=== PATIENT | male | born 1950 | race Asian ===

== ENCOUNTER 2019-08-27 22:44 | Inpatient (IN) | payer OTHER ==
--- NOTE | 2019-08-27 23:35 | PDOC ---
History of Present Illness - General Chief Complaint: Weakness Stated Complaint: FALL Time Seen by Provider: 08/27/19 23:11 - History of Present Illness Initial Comments: Mr. Hamilton is a 68 y/o male with PMH significant for DM, hypothyroidism, subtotal cholectomy with Billroth II anastomosis (2013) presenting today s /p fall tonight, nausea and vomiting x1 day yesterday, and decreased appetite and weakness for the past 2 weeks. Reports that he fell tonight while leaving the [employer]. He was helped up by bystanders. Unknown if he hit his head. Likely LOC. Family reports some shaking while he is on the floor, but unable to provide more detail if this was seizure like activity. Patient is alert and oriented. Denies headache or neck pain. Denies chest pain or shortness of breath. Denies heart palpitations prior to fall. Denies abdominal pain. Denies diarrhea. Denies dysuria/hematuria. Denies leg swelling. Past History - Past Medical History Allergies/Adverse Reactions: Allergies Allergy/AdvReac Type Severity Reaction Status Date / Time No Known Allergies Allergy Verified 08/27/19 22:53 Home Medications: Ambulatory Orders Levothyroxine [Synthroid -] 75 mcg PO DAILY 07/12/15 Tamsulosin HCl [Flomax -] 0.4 mg PO DAILY #0 capsule 07/12/15 Albuterol Sulfate Inhaler - [Ventolin HFA Inhaler -] 2 inh PO Q4H PRN #1 inh 01/05 Famotidine [Pepcid -] 20 mg PO BID #14 tablet 02/02/16 Ferrous Sulfate [Feosol] 325 mg PO DAILY 30 Days #30 tablet 08/28/19 Metformin HCl [Glucophage] 500 mg PO BID 08/28/19 Pantoprazole Sodium 40 mg PO DAILY 08/28/19 COPD: No Diabetes: Yes GI Disorders: Yes (GASTRITIS) Disorders: Yes (BPH) Liver Disease: Yes (HBV) Thyroid Disease: Yes (HYPO) - Surgical History Abdominal Surgery: Yes (05/2014 at [facility]) - Psycho Social/Smoking Cessation Hx Smoking History: Never smoked Have you smoked in the past 12 months: No Hx Alcohol Use: No Drug/Substance Use Hx: No Substance Use Type: None Hx Substance Use Treatment: No Review of Systems - Review of Systems Comments:: GENERAL/CONSTITUTIONAL: No fever or chills. Reports generalized weakness. HEAD, EYES, EARS, NOSE AND THROAT: No change in vision. No change in hearing. No sore throat._ CARDIOVASCULAR: No chest pain or shortness of breath_ RESPIRATORY: Denies cough, hemoptysis_ GASTROINTESTINAL: No nausea, vomiting, diarrhea or constipation._ GENITOURINARY: No dysuria, frequency, or change in urination._ MUSCULOSKELETAL: No joint or muscle swelling or pain. No neck or back pain._ SKIN: No rash_ NEUROLOGIC: Reprots dizziness. Reports loss of consciousness. No headache, or change in strength/sensation._ ENDOCRINE: No increased thirst. No abnormal weight change_ HEMATOLOGIC/LYMPHATIC: No anemia, easy bleeding, or history of blood clots._ ALLERGIC/IMMUNOLOGIC: No hives or skin allergy._ *Physical Exam - Vital Signs Last Vital Signs Temp Pulse Resp BP Pulse Ox 98.2 F 95 H 18 72/41 L 97 08/27/19 22:50 08/27/19 22:50 08/27/19 22:50 08/27/19 22:50 08/27/19 22:50 - Physical Exam GENERAL: Awake, alert, and oriented to person/place/time, in no acute distress_ HEAD: No signs of trauma, normocephalic, atraumatic _ EYES: PERRLA, EOMI, sclera anicteric, conjunctiva clear_ ENT: Hearing grossly normal, nares patent, oropharynx clear without exudates. No uvular deviation. Moist mucosa_ NECK: Normal ROM, supple, no lymphadenopathy, JVD, or masses. No c-spine TTP. LUNGS: No distress, speaks in full sentences, clear to auscultation bilaterally _ HEART: Regular rate and rhythm, normal S1 and S2, no murmurs appreciated, peripheral pulses normal and equal bilaterally._ ABDOMEN: Soft, mild diffuse TTP, normoactive bowel sounds. No guarding, no rebound. No masses_ EXTREMITIES: Normal inspection, Normal range of motion, no edema. No clubbing or cyanosis_ NEUROLOGICAL: CN II-XII tested and intact. Sensation intact to sharp/dull differentiation in all extremities. Motor: Normal tone and bulk. No abnormal movements appreciated. No pronator drift. Strength tested and 5/5 in bilateral wrist flexion/extension, elbow flexion/extension, shoulder abduction, straight leg raise, knee flexion/ extension, ankle dorsiflexion/plantarflexion. Patient ambulates with a steady gait. Coordination: Finger to nose and heel to gifford testing intact bilaterally. SKIN: Warm, Dry, normal turgor, no rashes or lesions noted_ RECTAL: Normal external inspection. No hemorrhoids visualized. Rectal vault empty. No obvious bleeding appreciated. No palpable masses. ED Treatment Course - LABORATORY CBC & Chemistry Diagram: 08/29/19 06:10 08/29/19 06:10 Medical Decision Making - Medical Decision Making 68M hx of DM hypothyroidism presenting today s/p likely syncope and fall. -cbc, cmp, lipase, coags -CT head, CT neck -ekg, trop, cxr -ua, ucx 08/28/19 01:00 Labs reviewed. Laboratory Tests 08/28/19 08/28/19 08/28/19 00:20 00:20 00:20 WBC 12.5 H RBC 4.70 Hgb 8.7 L Hct 29.1 L MCV 62.0 L MCH 18.4 L D MCHC 29.7 L RDW 21.7 H Plt Count 364 D MPV 9.1 D Absolute Neuts (auto) 7.2 Neutrophils % 57.5 Lymphocytes % 33.6 D Monocytes % 6.7 Eosinophils % 1.6 Basophils % 0.6 Nucleated RBC % 0 Hypochromia 2+ Platelet Estimate Normal Polychromasia 0 Poikilocytosis 2+ Anisocytosis 2+ Microcytosis 2+ Macrocytosis 0 PT with INR INR PTT (Actin FS) Sodium 139 Potassium 4.8 Chloride 110 H Carbon Dioxide 20 L Anion Gap 9 BUN 24.8 H Creatinine 2.2 H Est GFR (CKD-EPI)AfAm 33.92 Est GFR (CKD-EPI)NonAf 29.27 Random Glucose 95 Calcium 8.8 Total Bilirubin 0.2 AST 20 ALT 22 Alkaline Phosphatase 80 Creatine Kinase 106 Troponin I < 0.02 Total Protein 7.6 Albumin 3.5 Lipase 169 Urine Color Urine Appearance Urine pH Ur Specific [place] Urine Protein Urine Glucose (UA) Urine Ketones Urine Blood Urine Nitrite Urine Bilirubin Urine Urobilinogen Ur Leukocyte Esterase Urine WBC (Auto) Urine RBC (Auto) Urine Casts (Auto) U Pathogenic Cast Auto U Epithel Cells (Auto) Urine Bacteria (Auto) Stool Occult Blood 08/28/19 08/28/19 08/28/19 00:20 01:10 01:10 WBC RBC Hgb Hct MCV MCH MCHC RDW Plt Count MPV Absolute Neuts (auto) Neutrophils % Lymphocytes % Monocytes % Eosinophils % Basophils % Nucleated RBC % Hypochromia Platelet Estimate Polychromasia Poikilocytosis Anisocytosis Microcytosis Macrocytosis PT with INR 11.60 INR 0.98 PTT (Actin FS) 38.3 H Sodium Potassium Chloride Carbon Dioxide Anion Gap BUN Creatinine Est GFR (CKD-EPI)AfAm Est GFR (CKD-EPI)NonAf Random Glucose Calcium Total Bilirubin AST ALT Alkaline Phosphatase Creatine Kinase Troponin I Total Protein Albumin Lipase Urine Color Yellow Urine Appearance Clear Urine pH 5.0 Ur Specific [place] 1.030 Urine Protein 1+ H Urine Glucose (UA) Negative Urine Ketones Trace H Urine Blood Negative Urine Nitrite Negative Urine Bilirubin Negative Urine Urobilinogen 1.0 Ur Leukocyte Esterase Negative Urine WBC (Auto) 2 Urine RBC (Auto) 2 Urine Casts (Auto) 47 U Pathogenic Cast Auto None U Epithel Cells (Auto) 2.0 Urine Bacteria (Auto) 1.5 Stool Occult Blood Negative 08/28/19 01:40 EKG shows NSR, no axis deviation, no ST elevation/depression, no QTc prolongation. 08/28/19 02:28 CT head shows No acute intracranial hemorrhage mass effect or midline shift. Mild nonspecific periventricular predominant low density throughout the deep white matter is most likely due to mild small vessel ischemic white matter disease. Calcified arteriosclerosis of the cavernous carotids noted. CT c-spine shows No evidence of acute fracture or subluxation. Moderate degenerative disc disease and moderate degenerative joint disease of the uncovertebral joints and facets throughout the cervical spine. Moderate multilevel spinal canal narrowing in the middle and lower cervical levels. Severe multilevel neural foraminal narrowing in the middle and lower cervical levels. If clinically indicated follow-up outpatient MRI cervical spine may be needed. 08/28/19 02:48 Pt signed out to Dr. Cervantes. Discharge - Discharge Information Problems reviewed: Yes Clinical Impression/Diagnosis: Weakness, Dizziness, Anemia, Syncope and collapse Condition: Guarded - Admission Yes - Follow up/Referral - Patient Discharge Instructions - Post Discharge Activity
[2019-08-28 00:35] LABS: HEMOGLOBIN 8.7 GM/dL (11.7-16.9); MEAN PLT VOLUME 9.1 fl (7.5-11.1)
[2019-08-28 00:43] LABS: BASO % 0.6 % (0-2.0); EOS % 1.6 % (0-4.5); HEMATOCRIT 29.1 % (35.4-49); LYMPH % 33.6 % (8-40); MCHC 29.7 g/dl (32.0-35.9); MONO % 6.7 % (3.8-10.2); NEUT % 57.5 % (42.8-82.8); PLATELET COUNT 364 K/MM3 (134-434); RDW 21.7 % (11.9-15.9); WHITE BLOOD COUNT 12.5 K/mm3 (4.0-10.0)
[2019-08-28 00:46] LABS: MCH 18.4 pg (25.7-33.7)
[2019-08-28 00:47] LABS: INR 0.98 (0.83-1.09); PROTHROMBIN TIME (PATIENT) 11.6 SEC (9.7-13.0)
[2019-08-28 00:49] LABS: ACTIVATED PTT 38.3 SECONDS (25.2-36.5)
--- NOTE | 2019-08-28 01:18 | PDOC ---
Attending Attestation - Resident Resident Name: Adam Wills - ED Attending Attestation I have performed the following: I have examined & evaluated the patient, The case was reviewed & discussed with the resident, I agree w/resident's findings & plan - HPI HPI: 08/28/19 04:34 Pt got dizzy at the [employer] today and passed out. Unclear how long the LOC was; bystanders glrabbed him and stood him up. According to his soninlaw and daughter, pt has not been eating well and has decreased appetite. No chest pain and no dysuria, no fevers and no ill contacts. No recent travel and no PMHx of significance. - Physicial Exam PE: 08/28/19 04:35 Normal neuro exam. No pitting edema of legs Normal heart and lungs Normal HEENT No rashes and no fever Pt is following commands and naswering questions as normal Pt has no complaints. Just weakness - Medical Decision Making 08/28/19 02:30 Patient Name: SUKUMAR URIARTE THIS IS A PRELIMINARY REPORT FROM [facility] DATE OF SERVICE: 2019-08-28 01:23:30 IMAGES: [id number] EXAM: CERVICAL SPINE CT W/O CONTR HISTORY: 68-year-old male status post fall COMPARISON: May 29, 2019 FINDINGS: There is no prevertebral soft tissue swelling. There is no evidence of acute fracture or subluxation. There are no destructive lesions. Moderate degenerative disc disease and moderate degenerative joint disease of the uncovertebral joints and facets throughout the cervical spine. Moderate multilevel spinal canal narrowing in the middle and lower cervical levels. Severe multilevel neural foraminal narrowing in the middle and lower cervical levels. IMPRESSION: No evidence of acute fracture or subluxation. Moderate degenerative disc disease and moderate degenerative joint disease of the uncovertebral joints and facets throughout the cervical spine. Moderate multilevel spinal canal narrowing in the middle and lower cervical levels. Severe multilevel neural foraminal narrowing in the middle and lower cervical levels. If clinically indicated follow-up outpatient MRI cervical spine may be needed. Patient Name: SUKUMAR URIARTE THIS IS A PRELIMINARY REPORT FROM [facility] DATE OF SERVICE: 2019-08-28 01:26:59 IMAGES: [id number] EXAM: HEAD CT WITHOUT CONTRAST HISTORY: 68-year-old male status post fall COMPARISON: May 29, 2019 FINDINGS: No acute intracranial hemorrhage mass effect or midline shift. The ventricles sulci and basilar cisterns have a normal size and contour. Mild nonspecific periventricular predominant low density throughout the deep white matter is most likely due to mild small vessel ischemic white matter disease. Calcified arteriosclerosis of the cavernous carotids noted. The sinuses and mastoid air cells are clear within the [id number]. The calvarium is intact. IMPRESSION No acute intracranial hemorrhage mass effect or midline shift. Mild nonspecific periventricular predominant low density throughout the deep white matter is most likely due to mild small vessel ischemic white matter disease. Calcified arteriosclerosis of the cavernous carotids noted 08/28/19 03:53 08/28/19 04:36 Pt will be admitted for Dizziness and weakness and syncope and anemia Heart Score/ECG Review - ECG Intrepretation Rhythm: Regular Rhythm - [place]: Normal - P and KS Delta Wave(s) Present: No WPW: No - QRS Poor R Wave Progression: No Q Wave Present: No - ST and T Early Repolarization: No Non Specific ST-T Wave changes: No Flattened T Waves: No Prolonged Q-T Interval: No - ECG Impressions Normal ECG: Yes Non-specific ST Elevation: No Ischemic Changes: No Bradycardia: No Torsades chacorta Pointes: No WPW: No
[2019-08-28 01:32] LABS: ALBUMIN 3.5 g/dl (3.4-5.0); ALK PHOS 80 U/L (45-117); ANION GAP 9 MMOL/L (8-16); BILIRUBIN,TOTAL 0.2 mg/dL (0.2-1); BLOOD UREA NITROGEN 24.8 mg/dL (7-18); CALCIUM 8.8 mg/dL (8.5-10.1); CHLORIDE 110 mmol/L (98-107); CO2 20 mmol/L (21-32); CREATININE 2.2 mg/dL (0.55-1.3); GLUCOSE,RANDOM 95 mg/dL (74-106); POTASSIUM 4.8 mmol/L (3.5-5.1); SGOT/AST 20 U/L (15-37); SGPT/ALT 22 U/L (13-61); SODIUM 139 mmol/L (136-145); TOT PROT 7.6 g/dl (6.4-8.2)
[2019-08-28 01:50] LABS: HYALINE CASTS 47 /lpf (0-8); URINE APPEARANCE CLEAR; URINE BACTERIA 1.5 /hpf (NEGATIVE); URINE BILIRUBIN NEGATIVE (NEGATIVE); URINE COLOR YELLOW; URINE GLUCOSE (UA) NEGATIVE (NEGATIVE); URINE KETONE TRACE (NEGATIVE); URINE LEUK ESTERASE NEGATIVE (NEGATIVE); URINE NITRITE NEGATIVE (NEGATIVE); URINE PROTEIN 1+ (NEGATIVE); URINE RBC 2 /hpf (0-4); URINE WBC 2 /hpf (0-5)
--- NOTE | 2019-08-28 02:47 | PDOC ---
*Physical Exam - Vital Signs Last Vital Signs Temp Pulse Resp BP Pulse Ox 98.2 F 95 H 18 110/74 97 08/27/19 22:50 08/27/19 22:50 08/27/19 22:50 08/28/19 01:12 08/27/19 22:50 <LizrickeyCurtmomoJesse - Last Filed: 08/28/19 04:11> - Vital Signs Last Vital Signs Temp Pulse Resp BP Pulse Ox 98.2 F 95 H 18 110/74 97 08/27/19 22:50 08/27/19 22:50 08/27/19 22:50 08/28/19 01:12 08/27/19 22:50 <Mckenna Day - Last Filed: 08/28/19 04:38> ED Treatment Course - LABORATORY CBC & Chemistry Diagram: 08/28/19 00:20 08/28/19 00:20 - ADDITIONAL ORDERS Additional order review: Laboratory Results 08/28/19 08/28/19 08/28/19 01:10 01:10 00:20 PT with INR 11.60 INR 0.98 PTT (Actin FS) 38.3 H Sodium Potassium Chloride Carbon Dioxide Anion Gap BUN Creatinine Est GFR (CKD-EPI)AfAm Est GFR (CKD-EPI)NonAf Random Glucose Calcium Total Bilirubin AST ALT Alkaline Phosphatase Creatine Kinase Troponin I Total Protein Albumin Lipase Urine Color Yellow Urine Appearance Clear Urine pH 5.0 Ur Specific [place] 1.030 Urine Protein 1+ H Urine Glucose (UA) Negative Urine Ketones Trace H Urine Blood Negative Urine Nitrite Negative Urine Bilirubin Negative Urine Urobilinogen 1.0 Ur Leukocyte Esterase Negative Urine WBC (Auto) 2 Urine RBC (Auto) 2 Urine Casts (Auto) 47 U Pathogenic Cast Auto None U Epithel Cells (Auto) 2.0 Urine Bacteria (Auto) 1.5 Stool Occult Blood Negative 08/28/19 08/28/19 00:20 00:20 PT with INR INR PTT (Actin FS) Sodium 139 Potassium 4.8 Chloride 110 H Carbon Dioxide 20 L Anion Gap 9 BUN 24.8 H Creatinine 2.2 H Est GFR (CKD-EPI)AfAm 33.92 Est GFR (CKD-EPI)NonAf 29.27 Random Glucose 95 Calcium 8.8 Total Bilirubin 0.2 AST 20 ALT 22 Alkaline Phosphatase 80 Creatine Kinase 106 Troponin I < 0.02 Total Protein 7.6 Albumin 3.5 Lipase 169 Urine Color Urine Appearance Urine pH Ur Specific [place] Urine Protein Urine Glucose (UA) Urine Ketones Urine Blood Urine Nitrite Urine Bilirubin Urine Urobilinogen Ur Leukocyte Esterase Urine WBC (Auto) Urine RBC (Auto) Urine Casts (Auto) U Pathogenic Cast Auto U Epithel Cells (Auto) Urine Bacteria (Auto) Stool Occult Blood 08/28/19 00:20 RBC 4.70 MCV 62.0 L MCHC 29.7 L RDW 21.7 H MPV 9.1 D Neutrophils % 57.5 Lymphocytes % 33.6 D Monocytes % 6.7 Eosinophils % 1.6 Basophils % 0.6 <Jesse Cervantes - Last Filed: 08/28/19 04:11> - LABORATORY CBC & Chemistry Diagram: 08/28/19 00:20 08/28/19 00:20 - ADDITIONAL ORDERS Additional order review: Laboratory Results 08/28/19 08/28/19 08/28/19 01:10 01:10 00:20 PT with INR 11.60 INR 0.98 PTT (Actin FS) 38.3 H Sodium Potassium Chloride Carbon Dioxide Anion Gap BUN Creatinine Est GFR (CKD-EPI)AfAm Est GFR (CKD-EPI)NonAf Random Glucose Calcium Total Bilirubin AST ALT Alkaline Phosphatase Creatine Kinase Troponin I Total Protein Albumin Lipase Urine Color Yellow Urine Appearance Clear Urine pH 5.0 Ur Specific [place] 1.030 Urine Protein 1+ H Urine Glucose (UA) Negative Urine Ketones Trace H Urine Blood Negative Urine Nitrite Negative Urine Bilirubin Negative Urine Urobilinogen 1.0 Ur Leukocyte Esterase Negative Urine WBC (Auto) 2 Urine RBC (Auto) 2 Urine Casts (Auto) 47 U Pathogenic Cast Auto None U Epithel Cells (Auto) 2.0 Urine Bacteria (Auto) 1.5 Stool Occult Blood Negative 08/28/19 08/28/19 00:20 00:20 PT with INR INR PTT (Actin FS) Sodium 139 Potassium 4.8 Chloride 110 H Carbon Dioxide 20 L Anion Gap 9 BUN 24.8 H Creatinine 2.2 H Est GFR (CKD-EPI)AfAm 33.92 Est GFR (CKD-EPI)NonAf 29.27 Random Glucose 95 Calcium 8.8 Total Bilirubin 0.2 AST 20 ALT 22 Alkaline Phosphatase 80 Creatine Kinase 106 Troponin I < 0.02 Total Protein 7.6 Albumin 3.5 Lipase 169 Urine Color Urine Appearance Urine pH Ur Specific [place] Urine Protein Urine Glucose (UA) Urine Ketones Urine Blood Urine Nitrite Urine Bilirubin Urine Urobilinogen Ur Leukocyte Esterase Urine WBC (Auto) Urine RBC (Auto) Urine Casts (Auto) U Pathogenic Cast Auto U Epithel Cells (Auto) Urine Bacteria (Auto) Stool Occult Blood 08/28/19 00:20 RBC 4.70 MCV 62.0 L MCHC 29.7 L RDW 21.7 H MPV 9.1 D Neutrophils % 57.5 Lymphocytes % 33.6 D Monocytes % 6.7 Eosinophils % 1.6 Basophils % 0.6 <Mckenna Day - Last Filed: 08/28/19 04:38> Medical Decision Making - Medical Decision Making 08/28/19 02:45 hs diabetes, hypothyroidsim 3wks weakness and decreased appetite, fell today possible LOC and unknown head trauma head CT C-spine are negative CXR pending EKG is normal admit for syncope Admit to hospitalist. 08/28/19 04:11 Pt. microblogged for admission. <Jesse Cervantes - Last Filed: 08/28/19 04:11> Discharge <Jesse Cervantes - Last Filed: 08/28/19 04:11> - Discharge Information Problems reviewed: Yes - Admission Yes <Mckenna Day - Last Filed: 08/28/19 04:38> - Discharge Information Clinical Impression/Diagnosis: Weakness, Dizziness, Anemia, Syncope and collapse Condition: Guarded - Follow up/Referral Referrals: Damaris Corona MD [Primary Care Provider] - - Patient Discharge Instructions - Post Discharge Activity
[2019-08-28 03:12] LABS: ANISOCYTOSIS 2+; MACROCYTOSIS 0; PLATELET ESTIMATE NORMAL
[2019-08-28] MEDS ORDERED: FOLIC ACID INJECTION - 1 MG, THIAMINE HCL 100 MG, MULTIVIT INJECTION ADULT 10 ML in SOD... IVPB ONE (03:55)
--- NOTE | 2019-08-28 04:19 | PN ---
Teaching Attending Note Name of Resident: Giovanna Palacios ATTENDING PHYSICIAN STATEMENT I saw and evaluated the patient. I reviewed the resident's note and discussed the case with the resident. I agree with the resident's findings and plan as documented. SUBJECTIVE: Patient is a 68 year old man with a PMH of NIDDM, Hypothyroidism, Hepatitis B infection, Chronic gastritis, BPH and Subtotal colectomy with Billroth II anastomosis (2013) presenting today after a fall tonight, nausea and vomiting yesterday, and decreased appetite and weakness for the past 2 weeks. Reports that he fell tonight while leaving the [employer]. He was helped up by bystanders. Unknown if he hit his head. Likely LOC. Family reports some shaking while he is on the floor, but unable to provide more detail if this was seizure like activity. Had diarrhea in recent days as well as abdominal discomfort. Patient denies headache, neck pain, chest pain, shortness of breath, palpitations prior to fall, dysuria, hematuria or leg swelling. Retired and lives with family. No history of smoking, drinking or illicit drug use. No recent travel or sick contacts. OBJECTIVE: Alert Vital Signs Period Temp Pulse Resp BP Sys/Carroll Pulse Ox Last 24 Hr 98.2 F 95 18 72-110/41-74 97 HEENT: No Jaundice, eye redness or discharge, PERRLA, EOMI. Normocephalic, atraumatic. External ears are normal and hearing is grossly intact. No nasal discharge. Neck: Supple, nontender. No palpable adenopathy or thyromegaly. No JVD Chest: Good effort. Clear to auscultation and percussion. Heart: Regular. No S3, rub or murmur Abdomen: Not distended, soft, nontender and no HSM. No rebound or guarding. Normal bowel sounds. Ext: Peripheral pulses intact. No leg edema. Skin: Warm and dry. No petechiae, rash or ecchymosis. Neuro: Alert. Oriented x3. CN 2-12 grossly intact. Sensation grossly intact in all four extremities and DTR are symmetric. Psych: Appropriate mood and affect. Good insight. Current Medications Generic Name Dose Route Start Last Admin Trade Name Freq PRN Reason Stop Dose Admin Folic Acid 1 mg/ Thiamine HCl 1,000 mls @ 125 mls/hr 08/28/19 03:55 100 mg/ Multivitamins/Minerals IVPB 08/28/19 11:54 10 ml/ Sodium Chloride ONCE ONE Home Medications Medication Instructions Recorded Levothyroxine [Synthroid -] 25 mcg PO DAILY 07/12/15 Tamsulosin HCl [Flomax -] 0.4 mg PO DAILY #0 capsule 07/12/15 Albuterol Sulfate Inhaler - 2 inh PO Q4H PRN #1 inh 10/26/15 [Ventolin HFA Inhaler -] Famotidine [Pepcid -] 20 mg PO BID #14 tablet 02/02/16 Abnormal Lab Results 08/28/19 08/28/19 08/28/19 00:20 00:20 00:20 WBC 12.5 H Hgb 8.7 L Hct 29.1 L MCV 62.0 L MCH 18.4 L D MCHC 29.7 L RDW 21.7 H PTT (Actin FS) 38.3 H Chloride 110 H Carbon Dioxide 20 L BUN 24.8 H Creatinine 2.2 H Urine Protein Urine Ketones 08/28/19 01:10 WBC Hgb Hct MCV MCH MCHC RDW PTT (Actin FS) Chloride Carbon Dioxide BUN Creatinine Urine Protein 1+ H Urine Ketones Trace H ASSESSMENT AND PLAN: 1. Syncope/Anemia - Etiology of syncope is unclear. Had a bot of hypotension in the ER. Dehydration due to recent diarrhea/gastrointestinal infection and anemia are likely contributing factors. Will send any stool samples for analysis , get CT abdomen/pelvis, CXR, Flu swab, hydrate with IV NS and treat empirically with Levofloxacin and Flagyl pending cultures. EKG shows NSR with nonspecific T wave changes. If this initial workup is negative, then will proceed with carotid doppler, ECHO and brain MRI. No acute intracranial pathology on head CT. CT of C-spine didnot show any fracture or subluxation but noted "Moderate degenerative disc disease and moderate degenerative joint disease of the uncovertebral joints and facets throughout the cervical spine. Moderate multilevel spinal canal narrowing in the middle and lower cervical levels. Severe multilevel neural foraminal narrowing in the middle and lower cervical levels." Will continue comprehensive care for all of patients comorbid conditions. 2. CKD - Has risk factors for CKD. Will get kidney sonogram, PTH, phosphate, hydrate gently and monitor urine output. Will consult nephrology and avoid nephrotoxic agents such as NSAIDS, aminoglycosides, contrast dyes and certain Alternative medicine products. 3. Microcytic Anemia - Likely partly due to CKD. Will do basic anemia work up including serial stool guaiacs, reticulocyte count and iron studies. Consult GI for colonoscopy. Would benefit from Procrit therapy once iron replete. 4. DVT prophylaxis - Heparin 5000u sq tid. 5. Advance directives - Full code
[2019-08-28] MEDS ORDERED: SODIUM CHLORIDE 1,000 ML IV STA (06:23)
--- NOTE | 2019-08-28 07:19 | HP ---
CHIEF COMPLAINT: syncope PCP: Damaris Corona HISTORY OF PRESENT ILLNESS: Mr. Hamilton is a 68y/o male with DM and hypothyroidism who presents following syncope. He reports he was at [employer] yesterday evening and fell to the ground. He lost consciousness but was unsure how long. He reports having appetite loss and weakness over the last 2 weeks. In the last 2 days he began having diarrhea and right side abdominal pain, no blood noted in stool. He also had 1 episode of nausea followed by vomiting yesterday. He denies any sick contacts or eating foods out of the ordinary. He denies fever, chills, headache, or dizziness. ER course was notable for: (1) CT head/c-spine- no acute process, no fx (2) WBC 12.5 (3) Cr 2.2 [place] [id number] [place]. Pt family was not at bedside during this interview. PAST MEDICAL HISTORY: HTN hypothyroidism b/l cataracts PAST SURGICAL HISTORY: subtotal colectomy with anastamosis 2013 left eye cataract repair Social History: Smoking: denies Alcohol: denies Drugs: denies Lives at home with his Allergies No Known Allergies Allergy (Verified 08/27/19 22:53) HOME MEDICATIONS: Home Medications Medication Instructions Recorded Levothyroxine [Synthroid -] 75 mcg PO DAILY 07/12/15 Tamsulosin HCl [Flomax -] 0.4 mg PO DAILY #0 capsule 07/12/15 Albuterol Sulfate Inhaler - 2 inh PO Q4H PRN #1 inh 10/26/15 [Ventolin HFA Inhaler -] Famotidine [Pepcid -] 20 mg PO BID #14 tablet 02/02/16 Metformin HCl [Glucophage] 500 mg PO BID 08/28/19 Pantoprazole Sodium 40 mg PO DAILY 08/28/19 REVIEW OF SYSTEMS see HPI PHYSICAL EXAMINATION Vital Signs - 24 hr 08/27/19 08/28/19 08/28/19 22:50 01:12 05:10 Temperature 98.2 F Pulse Rate 95 H Pulse Rate [ 64 Apical] Respiratory 18 18 Rate Blood Pressure 72/41 L Blood Pressure 110/74 130/74 [Left Arm] O2 Sat by Pulse 97 99 Oximetry (%) GENERAL: Awake, alert, and fully oriented, in no acute distress. HEAD: Normal with no signs of trauma. EYES: Pupils equal, round and reactive to light, b/l cataracts, extraocular movements intact, sclera anicteric, conjunctiva clear. EARS, NOSE, THROAT: Ears normal, nares patent, moist mucous membranes. NECK: Normal range of motion LUNGS: Clear to auscultation bilaterally. No wheezes HEART: Regular rate and rhythm, no murmur ABDOMEN: Soft, nontender, not distended, hyperactive bowel sounds, no guarding, no rebound MUSCULOSKELETAL: Normal range of motion at all joints. UPPER EXTREMITIES: Warm, well-perfused. No peripheral edema. LOWER EXTREMITIES: Warm, well-perfused. No peripheral edema. NEUROLOGICAL: Cranial nerves II-XII intact. Normal speech. PSYCHIATRIC: Cooperative. Good eye contact. Appropriate mood and affect. SKIN: Warm, dry, normal turgor, no rashes Laboratory Results - last 24 hr 08/28/19 08/28/19 08/28/19 00:20 00:20 00:20 WBC 12.5 H RBC 4.70 Hgb 8.7 L Hct 29.1 L MCV 62.0 L MCH 18.4 L D MCHC 29.7 L RDW 21.7 H Plt Count 364 D MPV 9.1 D Absolute Neuts (auto) 7.2 Neutrophils % 57.5 Lymphocytes % 33.6 D Monocytes % 6.7 Eosinophils % 1.6 Basophils % 0.6 Nucleated RBC % 0 Hypochromia 2+ Platelet Estimate Normal Polychromasia 0 Poikilocytosis 2+ Anisocytosis 2+ Microcytosis 2+ Macrocytosis 0 PT with INR INR PTT (Actin FS) Sodium 139 Potassium 4.8 Chloride 110 H Carbon Dioxide 20 L Anion Gap 9 BUN 24.8 H Creatinine 2.2 H Est GFR (CKD-EPI)AfAm 33.92 Est GFR (CKD-EPI)NonAf 29.27 Random Glucose 95 Calcium 8.8 Total Bilirubin 0.2 AST 20 ALT 22 Alkaline Phosphatase 80 Creatine Kinase 106 Troponin I < 0.02 Total Protein 7.6 Albumin 3.5 Lipase 169 Urine Color Urine Appearance Urine pH Ur Specific [place] Urine Protein Urine Glucose (UA) Urine Ketones Urine Blood Urine Nitrite Urine Bilirubin Urine Urobilinogen Ur Leukocyte Esterase Urine WBC (Auto) Urine RBC (Auto) Urine Casts (Auto) U Pathogenic Cast Auto U Epithel Cells (Auto) Urine Bacteria (Auto) Stool Occult Blood 08/28/19 08/28/1908/28/19 00:20 01:10 01:10 WBC RBC Hgb Hct MCV MCH MCHC RDW Plt Count MPV Absolute Neuts (auto) Neutrophils % Lymphocytes % Monocytes % Eosinophils % Basophils % Nucleated RBC % Hypochromia Platelet Estimate Polychromasia Poikilocytosis Anisocytosis Microcytosis Macrocytosis PT with INR 11.60 INR 0.98 PTT (Actin FS) 38.3 H Sodium Potassium Chloride Carbon Dioxide Anion Gap BUN Creatinine Est GFR (CKD-EPI)AfAm Est GFR (CKD-EPI)NonAf Random Glucose Calcium Total Bilirubin AST ALT Alkaline Phosphatase Creatine Kinase Troponin I Total Protein Albumin Lipase Urine Color Yellow Urine Appearance Clear Urine pH 5.0 Ur Specific [place] 1.030 Urine Protein 1+ H Urine Glucose (UA) Negative Urine Ketones Trace H Urine Blood Negative Urine Nitrite Negative Urine Bilirubin Negative Urine Urobilinogen 1.0 Ur Leukocyte Esterase Negative Urine WBC (Auto) 2 Urine RBC (Auto) 2 Urine Casts (Auto) 47 U Pathogenic Cast Auto None U Epithel Cells (Auto) 2.0 Urine Bacteria (Auto) 1.5 Stool Occult Blood Negative ASSESSMENT/PLAN: Mr. Hamilton is a 68y/o male with DM and hypothyroidism who presents after syncope. He reports weakness over the last 2 weeks and diarrhea which started 2 days ago. Pt had leukocytosis and hypotension at presentation. #syncope -CT head/neck negative for acute processes -fluids -if abd CT negative, consider cardiac/neuro causes #diarrhea, r/o sepsis -CT abdomen/pelvis -monitor CBC -1L NS bolus -continue IV fluids -Levaquin -Flagyl -stool cultures -blood cultures #anemia ~10 on previous admission, 8.4 at admission -repeat CBC #SAGAR Cr 2.2 -hydrate -monitor labs #DM -SSI -BGMs #hypothyroid -reconcile and restart home meds DVT Ppx SCDs, reassess with repeat CBC FEN bolus given monitor labs NPO pending CT results dispo tele Visit type - Emergency Visit Emergency Visit: Yes ED Registration Date: 08/28/19 Care time: The patient presented to the Emergency Department on the above date and was hospitalized for further evaluation of their emergent condition. - New Patient This patient is new to me today: Yes Date on this admission: 08/28/19 - Critical Care Critical Care patient: No ATTENDING PHYSICIAN STATEMENT I saw and evaluated the patient. I reviewed the resident's note and discussed the case with the resident. I agree with the resident's findings and plan as documented. SUBJECTIVE: OBJECTIVE: ASSESSMENT AND PLAN:
[2019-08-28] MEDS: INSULIN SLIDING SCALE (NOVOLOG) 1 VIAL SQ SCH ×4 (08:59→21:36)
[2019-08-28 09:28] LABS: BASO % 1.2 % (0-2.0); EOS % 1.3 % (0-4.5); HEMATOCRIT 29.4 % (35.4-49); HEMOGLOBIN 8.8 GM/dL (11.7-16.9); LYMPH % 34.9 % (8-40); MCHC 29.9 g/dl (32.0-35.9); MEAN CELL VOLUME 61.8 fl (80-96); MEAN PLT VOLUME 9.1 fl (7.5-11.1); MONO % 6.4 % (3.8-10.2); NEUT % 56.2 % (42.8-82.8); PLATELET COUNT 326 K/MM3 (134-434); RBC 4.76 M/mm3 (4.00-5.60); RDW 21.2 % (11.9-15.9)
[2019-08-28 09:31] LABS: MCH 18.5 pg (25.7-33.7)
[2019-08-28 10:12] LABS: ALBUMIN 3.3 g/dl (3.4-5.0); BILIRUBIN,TOTAL 0.5 mg/dL (0.2-1); BLOOD UREA NITROGEN 22.6 mg/dL (7-18); CALCIUM 8.4 mg/dL (8.5-10.1); CREATININE 1.6 mg/dL (0.55-1.3); MAGNESIUM 2.2 mg/dL (1.8-2.4); PHOSPHOROUS 3.3 mg/dL (2.5-4.9); POTASSIUM 4.5 mmol/L (3.5-5.1); TOT PROT 7.6 g/dl (6.4-8.2)
[2019-08-28] MEDS ORDERED: INSULIN SLIDING SCALE (NOVOLOG) 1 VIAL SQ SCH (11:00)
--- NOTE | 2019-08-28 17:11 | HOSP ---
Subjective - Review of Symptoms Events since last encounter: Patient seen and examined by bedside. Admitted by overnight team this AM for weakness and diarrhea. CT abdomen does not show any gross acute process. CT head negative c/w rest of current management Physical Examination Vital Signs: Vital Signs Temperature 98 F 08/28/19 16:39 Pulse Rate 79 08/28/19 16:39 Respiratory Rate 18 08/28/19 16:39 Blood Pressure 138/86 08/28/19 16:39 O2 Sat by Pulse Oximetry (%) 99 08/28/19 16:39 Labs: CBC, BMP 08/28/19 09:03 08/28/19 09:03
[2019-08-28] MEDS ORDERED: ONDANSETRON 4 MG TABLET PO PRN (17:18)
[2019-08-28] MEDS: SODIUM CHLORIDE 1,000 ML IV SCH (18:32)
[2019-08-28] MEDS ORDERED: FLU VACCINE QUAD 60 MCG/0.5 ML (MDV 19-20) IM ONE (20:40)
[2019-08-28] MEDS: HEPARIN NA (PORCINE) 5,000 UNITS/ML 1ML VIAL SQ SCH (21:36)
--- NOTE | 2019-08-28 23:13 | EKG ---
Test Reason : Blood Pressure : / mmHG Vent. Rate : 070 BPM Atrial Rate : 070 BPM P-R Int : 174 ms QRS Dur : 090 ms QT Int : 382 ms P-R-T Axes : 046 008 076 degrees QTc Int : 412 ms NORMAL SINUS RHYTHM NONSPECIFIC T WAVE ABNORMALITY ABNORMAL ECG WHEN COMPARED WITH ECG OF 04-AUG-2016 19:51, VENT. RATE HAS DECREASED BY 53 BPM Confirmed by JANETTE WONG MD ([id number]) on 08/28/2019 11:13:21 PM Referred By: Confirmed By:JANETTE WONG MD
[2019-08-29] MEDS: INSULIN SLIDING SCALE (NOVOLOG) 1 VIAL SQ SCH ×4 (06:05→21:03)
[2019-08-29 06:31] LABS: BASO % 1.1 % (0-2.0); EOS % 1.6 % (0-4.5); HEMOGLOBIN 8.5 GM/dL (11.7-16.9); MCHC 30.4 g/dl (32.0-35.9); MEAN CELL VOLUME 62.1 fl (80-96); MEAN PLT VOLUME 8.8 fl (7.5-11.1); MONO % 7.1 % (3.8-10.2); NEUT % 57.2 % (42.8-82.8); PLATELET COUNT 304 K/MM3 (134-434); RBC 4.51 M/mm3 (4.00-5.60); RDW 21.5 % (11.9-15.9); WHITE BLOOD COUNT 9.2 K/mm3 (4.0-10.0)
[2019-08-29 06:41] LABS: MCH 18.9 pg (25.7-33.7)
[2019-08-29 06:49] VITALS: BMI 36.3
[2019-08-29 06:54] LABS: BLOOD UREA NITROGEN 14.4 mg/dL (7-18); CREATININE 1.4 mg/dL (0.55-1.3); MAGNESIUM 2.1 mg/dL (1.8-2.4); POTASSIUM 4.3 mmol/L (3.5-5.1)
[2019-08-29] MEDS: SODIUM CHLORIDE 1,000 ML IV SCH (08:49)
[2019-08-29] MEDS: HEPARIN NA (PORCINE) 5,000 UNITS/ML 1ML VIAL SQ SCH ×2 (09:07→21:26)
--- NOTE | 2019-08-29 12:02 | PN ---
Physical Exam: SUBJECTIVE: Patient seen and examined. Still having diarrhea but no abdominal pain, fever, chills or n/v OBJECTIVE: Vital Signs Period Temp Pulse Resp BP Sys/Carroll Pulse Ox Last 24 Hr 97.9 F-98.7 F 65-82 18-18 116-146/74-88 97-99 GENERAL: The patient is awake, alert, and fully oriented, in no acute distress. NECK: supple. LUNGS: Breath sounds equal, clear to auscultation bilaterally, no wheezes, no crackles, no accessory muscle use. HEART: Regular rate and rhythm, S1, S2 without murmur, rub or gallop. ABDOMEN: Soft, nontender, nondistended, normoactive bowel sounds + surgical scar noted EXTREMITIES: 2+ pulses, warm, well-perfused, no edema. PSYCH: Normal mood, normal affect. SKIN: Warm, dry, normal turgor, no rashes or lesions noted Laboratory Results - last 24 hr 08/28/19 08/28/19 08/28/19 12:11 16:32 21:34 WBC RBC Hgb Hct MCV MCH MCHC RDW Plt Count MPV Absolute Neuts (auto) Neutrophils % Lymphocytes % Monocytes % Eosinophils % Basophils % Nucleated RBC % Sodium Potassium Chloride Carbon Dioxide Anion Gap BUN Creatinine Est GFR (CKD-EPI)AfAm Est GFR (CKD-EPI)NonAf POC Glucometer 102 96 125 Random Glucose Calcium Magnesium Iron TIBC Iron Saturation Unsaturated IBC Ferritin 08/29/19 08/29/19 08/29/19 05:49 06:10 06:10 WBC 9.2 RBC 4.51 Hgb 8.5 L Hct 28.0 L MCV 62.1 L MCH 18.9 L MCHC 30.4 L RDW 21.5 H Plt Count 304 MPV 8.8 Absolute Neuts (auto) 5.2 Neutrophils % 57.2 Lymphocytes % 33.0 Monocytes % 7.1 Eosinophils % 1.6 Basophils % 1.1 Nucleated RBC % 0 Sodium 140 Potassium 4.3 Chloride 111 H Carbon Dioxide 21 Anion Gap 9 BUN 14.4 Creatinine 1.4 H Est GFR (CKD-EPI)AfAm 58.58 Est GFR (CKD-EPI)NonAf 50.54 POC Glucometer 98 Random Glucose 96 Calcium 8.0 L Magnesium 2.1 Iron 28 L TIBC 411 Iron Saturation 6 L Unsaturated IBC 383 H Ferritin 3.0 L 08/29/19 11:11 WBC RBC Hgb Hct MCV MCH MCHC RDW Plt Count MPV Absolute Neuts (auto) Neutrophils % Lymphocytes % Monocytes % Eosinophils % Basophils % Nucleated RBC % Sodium Potassium Chloride Carbon Dioxide Anion Gap BUN Creatinine Est GFR (CKD-EPI)AfAm Est GFR (CKD-EPI)NonAf POC Glucometer 171 Random Glucose Calcium Magnesium Iron TIBC Iron Saturation Unsaturated IBC Ferritin Active Medications Generic Name Dose Route Start Last Admin Trade Name Frejohnny PRN Reason Stop Dose Admin Ferrous Sulfate 325 mg 08/29/19 12:00 Feosol - PO TIDCM TAMELA Heparin Sodium (Porcine) 5,000 unit 08/28/19 22:00 08/29/19 09:07 Heparin - SQ 5,000 unit BID TAMELA Administration Sodium Chloride 1,000 mls @ 83 mls/hr 08/28/19 17:15 08/29/19 08:49 Normal Saline - IV 83 mls/hr ASDIR TAMELA Administration Insulin Aspart 1 vial 08/28/19 07:30 08/29/19 11:12 Novolog Vial Sliding Scale - SQ 2 units ACHS TAMELA Administration Protocol Ondansetron HCl 4 mg 08/28/19 17:18 Zofran - PO Q6H PRN NAUSEA AND/OR VOMITING ASSESSMENT/PLAN: 5o yo M w/ PMH of NIDDM, Hypothyroidism, Hepatitis B infection, Chronic gastritis, BPH and Subtotal colectomy with Billroth II anastomosis (2013) admitted for sycope, , Anemia, abdominal pain and N/V # syncope - unclear eitiology. Symptoms now resolved. Differentials include vasovagal vs dehydration in setting of diarrhea vs anemia - CT head negative - f/u Echo and doppler - tele # Anemia - likely iron deficiency based on iron studies. stool guaiac negative - start ferrous sulfate - Colonoscopy outpatient #Abdominal pain - resolved possible related to gastritis. Still having diarrhea - Likely viral eitiology. Patient has a hx of extensive surgical procedures in the past Abdomen CT showing no acute intra abdominal process - f/u stool cultures and Cdiff - normal wbc count, no fever or chills - abx discontinued - IVFs # CKD at baseline - avoid nephrotoxic meds - nephrology f/u outpatient #DMII - ISS DVT prophylaxis - Heparin 5000u sq tid. Advance directives - Full code Problem List - Problems (1) Syncope Code(s): R55 - SYNCOPE AND COLLAPSE (2) CKD (chronic kidney disease) Code(s): N18.9 - CHRONIC KIDNEY DISEASE, UNSPECIFIED (3) Diabetes Code(s): E11.9 - TYPE 2 DIABETES MELLITUS WITHOUT COMPLICATIONS (4) Abdominal pain Code(s): R10.9 - UNSPECIFIED ABDOMINAL PAIN Qualifiers: Abdominal location: unspecified location Qualified Code(s): R10.9 - Unspecified abdominal pain (5) Microcytic anemia Code(s): D50.9 - IRON DEFICIENCY ANEMIA, UNSPECIFIED Visit type - Emergency Visit Emergency Visit: Yes ED Registration Date: 08/28/19 Care time: The patient presented to the Emergency Department on the above date and was hospitalized for further evaluation of their emergent condition. - New Patient This patient is new to me today: No - Critical Care Critical Care patient: No - Discharge Referral Referred to [facility] Med [facility] No
[2019-08-29] MEDS: FERROUS SO4 325 MG TABLET (FP) PO SCH ×2 (12:10→17:00)
[2019-08-30] MEDS: INSULIN SLIDING SCALE (NOVOLOG) 1 VIAL SQ SCH ×4 (06:17→21:36)
[2019-08-30 06:37] LABS: BASO % 0.8 % (0-2.0); EOS % 2.3 % (0-4.5); HEMATOCRIT 28.7 % (35.4-49); HEMOGLOBIN 8.6 GM/dL (11.7-16.9); LYMPH % 32.7 % (8-40); MCHC 30.1 g/dl (32.0-35.9); MEAN CELL VOLUME 61.4 fl (80-96); MONO % 7.9 % (3.8-10.2); NEUT % 56.3 % (42.8-82.8); PLATELET COUNT 282 K/MM3 (134-434); RBC 4.68 M/mm3 (4.00-5.60); RDW 21.7 % (11.9-15.9); WHITE BLOOD COUNT 9.1 K/mm3 (4.0-10.0)
[2019-08-30 06:44] LABS: MCH 18.5 pg (25.7-33.7)
[2019-08-30 07:11] LABS: BLOOD UREA NITROGEN 11.1 mg/dL (7-18); CALCIUM 8.5 mg/dL (8.5-10.1); CREATININE 1.2 mg/dL (0.55-1.3); POTASSIUM 4.1 mmol/L (3.5-5.1)
[2019-08-30] MEDS: FERROUS SO4 325 MG TABLET (FP) PO SCH ×3 (08:15→16:47)
[2019-08-30] MEDS: HEPARIN NA (PORCINE) 5,000 UNITS/ML 1ML VIAL SQ SCH ×2 (09:13→21:36)
--- NOTE | 2019-08-30 14:58 | PN ---
Physical Exam: SUBJECTIVE: Patient seen and examined No new complaints; doing well and tell me that he has no chest pain, SOB, or further syncope. Admission imaging and telemetry reviewed Discussed with resident but I will be doing note today 10 sys ROS done and negative aside from HPI OBJECTIVE: Vital Signs Period Temp Pulse Resp BP Sys/Carroll Pulse Ox Last 24 Hr 97.7 F-98.2 F 77-83 16-20 122-142/80-98 97-98 GENERAL: The patient is awake, alert, and fully oriented, in no acute distress. HEAD: Normal with no signs of trauma. EYES: PERRL, extraocular movements intact, sclera anicteric, conjunctiva clear. No ptosis. ENT: Ears normal, nares patent, oropharynx clear without exudates, moist mucous membranes. NECK: Trachea midline, full range of motion, supple. LUNGS: Breath sounds equal, clear to auscultation bilaterally, no wheezes, no crackles, no accessory muscle use. HEART: Regular rate and rhythm, S1, S2 without murmur, rub or gallop. ABDOMEN: Soft, nontender, nondistended, normoactive bowel sounds, no guarding, no rebound, no hepatosplenomegaly, no masses. EXTREMITIES: 2+ pulses, warm, well-perfused, no edema. NEUROLOGICAL: Cranial nerves II through XII grossly intact. Normal speech, gait not observed. PSYCH: Normal mood, normal affect. SKIN: Warm, dry, normal turgor, no rashes or lesions noted Laboratory Results - last 24 hr 08/29/19 08/29/19 08/29/19 16:32 20:37 23:47 WBC RBC Hgb Hct MCV MCH MCHC RDW Plt Count MPV Absolute Neuts (auto) Neutrophils % Lymphocytes % Monocytes % Eosinophils % Basophils % Nucleated RBC % Sodium Potassium Chloride Carbon Dioxide Anion Gap BUN Creatinine Est GFR (CKD-EPI)AfAm Est GFR (CKD-EPI)NonAf POC Glucometer 148 76 151 Random Glucose Calcium 08/30/19 08/30/19 08/30/19 05:46 06:15 06:15 WBC 9.1 RBC 4.68 Hgb 8.6 L Hct 28.7 L MCV 61.4 L MCH 18.5 L MCHC 30.1 L RDW 21.7 H Plt Count 282 MPV 9.0 Absolute Neuts (auto) 5.1 Neutrophils % 56.3 Lymphocytes % 32.7 Monocytes % 7.9 Eosinophils % 2.3 Basophils % 0.8 Nucleated RBC % 0 Sodium 140 Potassium 4.1 Chloride 111 H Carbon Dioxide 21 Anion Gap 8 BUN 11.1 Creatinine 1.2 Est GFR (CKD-EPI)AfAm 70.58 Est GFR (CKD-EPI)NonAf 60.90 POC Glucometer 94 Random Glucose 91 Calcium 8.5 08/30/19 11:49 WBC RBC Hgb Hct MCV MCH MCHC RDW Plt Count MPV Absolute Neuts (auto) Neutrophils % Lymphocytes % Monocytes % Eosinophils % Basophils % Nucleated RBC % Sodium Potassium Chloride Carbon Dioxide Anion Gap BUN Creatinine Est GFR (CKD-EPI)AfAm Est GFR (CKD-EPI)NonAf POC Glucometer 185 Random Glucose Calcium Active Medications Generic Name Dose Route Start Last Admin Trade Name Freq PRN Reason Stop Dose Admin Ferrous Sulfate 325 mg 08/29/19 12:00 08/30/19 11:47 Feosol - PO 325 mg TIDCM TAMELA Administration Heparin Sodium (Porcine) 5,000 unit 08/28/19 22:00 08/30/19 09:13 Heparin - SQ 5,000 unit BID TAMELA Administration Sodium Chloride 1,000 mls @ 83 mls/hr 08/28/19 17:15 08/29/19 08:49 Normal Saline - IV 83 mls/hr ASDIR TAMELA Administration Insulin Aspart 1 vial 08/28/19 07:30 08/30/19 11:50 Novolog Vial Sliding Scale - SQ 2 units ACHS TAMELA Administration Protocol Ondansetron HCl 4 mg 08/28/19 17:18 Zofran - PO Q6H PRN NAUSEA AND/OR VOMITING ASSESSMENT/PLAN: 5o yo M w/ PMH of NIDDM, Hypothyroidism, Hepatitis B infection, Chronic gastritis, BPH and Subtotal colectomy with Billroth II anastomosis (2013) admitted for sycope, , Anemia, abdominal pain and N/V # syncope - Resolved; FU OSVS in AM - CT head negative - f/u Echo and doppler - tele # Anemia -FO OP colonoscopy, on iron. #Abdominal pain - No further diarrhea, negative abdominal exam today. # CKD at baseline - avoid nephrotoxic meds - nephrology f/u outpatient #DMII - ISS Visit type - Emergency Visit Emergency Visit: Yes ED Registration Date: 08/28/19 Care time: The patient presented to the Emergency Department on the above date and was hospitalized for further evaluation of their emergent condition. - New Patient This patient is new to me today: No - Critical Care Critical Care patient: No
--- NOTE | 2019-08-30 16:56 | ECHO ---
Name: WALTER URIARTEHIR Exam:Adult Echocardiogram Study Date: 08/30/2019 09:13 AM Age: 68 yrs Height: 53 in Weight: 145 lb BSA: 1.5 m2 MMode/2D Measurements & Calculations IVSd: 1.0 cm Ao root diam: 2.8 cm LVIDd: 3.6 cm LA dimension: 3.2 cm LVIDs: 2.6 cm LVPWd: 1.5 cm LVPWs: 1.6 cm EDV(Teich): 55.0 ml ESV(Teich): 24.5 ml LVOT diam: 2.1 cm Doppler Measurements & Calculations MV E max dirk: 54.3 cm/sec Ao V2 max: 120.5 cm/sec MV A max dirk: 87.9 cm/sec Ao max P.8 mmHg MV E/A: 0.62 MV dec time: 0.15 sec LEON(V,D): 2.1 cm2 LV V1 max P.3 mmHg TR max dirk: 202.2 cm/sec LV V1 max: 76.5 cm/sec TR max P.4 mmHg PA V2 max: 169.0 cm/sec Med Peak E' Dirk: 4.8 cm/sec PA max P.5 mmHg Med E/e': 11.3 Lat Peak E' Dirk: 5.7 cm/sec Lat E/e': 9.5 Procedure A complete two-dimensional transthoracic echocardiogram was performed (2D, M-mode, Doppler and color flow Doppler). Left Ventricle The left ventricle is normal in size. Left ventricular systolic function is normal. Ejection Fraction = 55- 60%. Grade I diastolic dysfunction, (abnormal relaxation pattern). Ratio E/E'= 11. No regional wall m otion abnormalities noted. Right Ventricle The right ventricle is normal size. The right ventricular systolic function is normal. RV systolic TD I is 13 cm/s. Atria The left atrial size is normal. Right atrial size is normal. Mitral Valve There is mild mitral annular calcification. There is no mitral regurgitation noted. Tricuspid Valve The tricuspid valve is normal in structure and function. There is mild tricuspid regurgitation. Right ventricular systolic pressure is normal. Aortic Valve There is mild aortic sclerosis.;. No aortic regurgitation is present. Pulmonic Valve The pulmonic valve is not well visualized. Great Vessels The aortic root is normal size. Pericardium/Pleura There is no pericardial effusion. Interpretation Summary The left ventricle is normal in size. Left ventricular systolic function is normal. No regional wall motion abnormalities noted. Ejection Fraction = 55-60%. Grade I diastolic dysfunction, (abnormal relaxation pattern). Ratio E/E'= 11 The right ventricular systolic function is normal. The left atrial size is normal. Right atrial size is normal. There is mild mitral annular calcification. There is mild tricuspid regurgitation. Right ventricular systolic pressure is normal. There is mild aortic sclerosis.; There is no pericardial effusion. Joshua Bay MD 08/30/2019 04:55 PM
[2019-08-30] MEDS: SODIUM CHLORIDE 1,000 ML IV SCH (21:36)
[2019-08-31] MEDS: INSULIN SLIDING SCALE (NOVOLOG) 1 VIAL SQ SCH ×3 (06:26→16:52)
[2019-08-31] MEDS ORDERED: SODIUM CHLORIDE 250 ML IV STA (08:29)
[2019-08-31] MEDS: FERROUS SO4 325 MG TABLET (FP) PO SCH ×3 (08:55→17:42)
[2019-08-31 09:15] LABS: BASO % 0.9 % (0-2.0); EOS % 2.3 % (0-4.5); HEMATOCRIT 32.2 % (35.4-49); HEMOGLOBIN 9.5 GM/dL (11.7-16.9); LYMPH % 37.5 % (8-40); MCHC 29.5 g/dl (32.0-35.9); MEAN CELL VOLUME 61.6 fl (80-96); MONO % 5.9 % (3.8-10.2); NEUT % 53.4 % (42.8-82.8); PLATELET COUNT 368 K/MM3 (134-434); RBC 5.22 M/mm3 (4.00-5.60); RDW 21.9 % (11.9-15.9); WHITE BLOOD COUNT 13.7 K/mm3 (4.0-10.0)
[2019-08-31 09:21] LABS: MCH 18.2 pg (25.7-33.7)
[2019-08-31 09:41] LABS: BLOOD UREA NITROGEN 11.8 mg/dL (7-18); CALCIUM 8.9 mg/dL (8.5-10.1); CREATININE 1.4 mg/dL (0.55-1.3); POTASSIUM 4.4 mmol/L (3.5-5.1)
[2019-08-31 10:26] LABS: ANISOCYTOSIS 2+; MACROCYTOSIS 0; PLATELET ESTIMATE NORMAL; ROULEAU 2+; TARGET CELLS 2+; TEAR DROP CELLS 1+
[2019-08-31] MEDS: HEPARIN NA (PORCINE) 5,000 UNITS/ML 1ML VIAL SQ SCH (10:27)
[2019-08-31 12:29] VITALS: TEMP 98.4
--- NOTE | 2019-08-31 16:41 | DS ---
Physical Exam: SUBJECTIVE: Patient seen and examined at bedside. BP WNL, until son in law in room, causing HTN. Encouraged breathing exercises. At this time, pt endorses feeling safe at home. Per SW note: It Sales Representative attempted to call [facility]PS Isra camarillo ([phone]) but there was no answer. It Sales Representative called [facility] number ([phone]) and reported findings to helpline employee. She reported she will call Isra TEE herself to relay information and an APS worker will call keno writer/runner within the next 72 hours. Patient will discharge home at this time, keno writer/runner will continue to provide information to APS when they call back. Original Note: OBJECTIVE: Vital Signs Period Temp Pulse Resp BP Sys/Carroll Pulse Ox Last 24 Hr 97.9 F-98.5 F 71-94 18-20 132-177/86-104 97-97 PHYSICAL EXAM LABS Laboratory Results - last 24 hr 08/30/19 08/30/19 08/31/19 16:47 21:33 06:15 WBC RBC Hgb Hct MCV MCH MCHC RDW Plt Count MPV Absolute Neuts (auto) Neutrophils % Lymphocytes % Monocytes % Eosinophils % Basophils % Nucleated RBC % Hypochromia Platelet Estimate Polychromasia Poikilocytosis Anisocytosis Microcytosis Macrocytosis Target Cells Tear Drop Cells Acanthocytes (Spur) Rouleaux Schistocytes Sodium Potassium Chloride Carbon Dioxide Anion Gap BUN Creatinine Est GFR (CKD-EPI)AfAm Est GFR (CKD-EPI)NonAf POC Glucometer 90 148 90 Random Glucose Calcium 08/31/19 08/31/19 08/31/19 08:52 08:52 11:48 WBC 13.7 H RBC 5.22 Hgb 9.5 L Hct 32.2 L MCV 61.6 L MCH 18.2 L MCHC 29.5 L RDW 21.9 H Plt Count 368 D MPV 9.0 Absolute Neuts (auto) 7.3 Neutrophils % 53.4 Lymphocytes % 37.5 Monocytes % 5.9 Eosinophils % 2.3 Basophils % 0.9 Nucleated RBC % 0 Hypochromia 2+ Platelet Estimate Normal Polychromasia 1+ Poikilocytosis 2+ Anisocytosis 2+ Microcytosis 2+ Macrocytosis 0 Target Cells 2+ Tear Drop Cells 1+ Acanthocytes (Spur) 1+ Rouleaux 2+ Schistocytes 2+ Sodium 141 Potassium 4.4 Chloride 113 H Carbon Dioxide 19 L Anion Gap 9 BUN 11.8 Creatinine 1.4 H Est GFR (CKD-EPI)AfAm 58.58 Est GFR (CKD-EPI)NonAf 50.54 POC Glucometer 112 Random Glucose 99 Calcium 8.9 08/28/19 08/28/19 08/29/19 00:20 09:03 06:10 WBC 12.5 H 11.0 H 9.2 Hgb 8.7 L 8.8 L 8.5 L Hct 29.1 L 29.4 L 28.0 L Plt Count 364 D 326 304 08/30/19 08/31/19 06:15 08:52 WBC 9.1 13.7 H Hgb 8.6 L 9.5 L Hct 28.7 L 32.2 L Plt Count 282 368 D 08/28/19 00:20 PT with INR 11.60 INR 0.98 PTT (Actin FS) 38.3 H Microbiology 08/28/19 19:30 Stool Salmonella/Shigella Culture - Final 08/28/19 19:30 Stool Escherichia coli 0157 Culture - Final NO GROWTH OF SALMONELLA OR SHIGELLA SPECIES OBTAINED NO GROWTH OF CAMPYLOBACTER SPECIES OBTAINED NO GROWTH OF YERSINIA SPECIES OBTAINED NO GROWTH OF VIBRIO SPECIES OBTAINED NO GROWTH OF E COLI 0157 OBTAINED 08/28/19 19:30 Stool Clostridioides difficile Antigen - Final 08/28/19 19:30 Stool Clostridioides difficile Toxin Assay - Final 08/27/19 23:56 Urine - Urine Clean Catch Urine Culture - Final NO GROWTH OBTAINED 08/28/19 09:03 Blood - Peripheral Venous Blood Culture - Preliminary NO GROWTH OBTAINED AFTER 72 HOURS, INCUBATION TO CONTINUE FOR 2 DAYS. 08/28/19 08:56 Blood - Peripheral Venous Blood Culture - Preliminary NO GROWTH OBTAINED AFTER 72 HOURS, INCUBATION TO CONTINUE FOR 2 DAYS. Imaging 08/28/19: C spine CT: no fx identified. moderate to marked C6-C7 degenerative central canal stenosis. multilevel bilateral foraminal sternoses noted secondary to uncovertebral joint hypertrophy. no gross disc herniation is identified. perivertebral soft tissues demonstrate no obvious pathology. 08/28/19: Head CT : (-) 08/28/19 CXR: (-) for acute changes 08/28/19: CTAP: urinary bladder overdistension - physiologic vs. mild early retention, no obvious interval change in comparison to a prior CT exam of 10/14/18. s/p cholecystectomy. mild CBD dilation. post surgical gastric and perihepatic changes seen. 08/29/19: Carotid duplex (-) 08/30/19 ECHO: LVSF normal, EF 55-60%, grade I diastolic dysfnc, RVSF normal, mild TR, RVSP normal, no pericardial effusion HOSPITAL COURSE: Date of Admission:08/28/19 Date of Discharge: 08/31/19 68 yo M w/ PMH of NIDDM, Hypothyroidism, Hepatitis B infection, Chronic gastritis, BPH and Subtotal colectomy with Billroth II anastomosis (2013) admitted for syncope, Anemia, abdominal pain and N/V # syncope - unclear eitiology. Symptoms now resolved. Differentials include vasovagal vs dehydration in setting of diarrhea vs anemia - CT head negative - ECHO WNL, carotid duplex (-) - tele without acute events. d/c home with cardio f/u and holter # Anemia - likely iron deficiency based on iron studies. stool guaiac negative - started on ferrous sulfate . will take senna, colace if constipated - Colonoscopy recommented as outpatient d/t [id number] #Abdominal pain - resolved, no longer w abdominal pain - stool cx (-) - off abx, no fever # CKD at baseline - avoid nephrotoxic meds - nephrology f/u outpatient #DMII - ISS, BGM. cont home meds on d/c pt states he feels safe at home. SW actions listed above. Minutes to complete discharge: 45 <Savanna Wells - Last Filed: 08/31/19 17:30> Physical Exam: Seen and examined; I agree with thee above assessment and plan and DCS as documented. Discussed with resident and indicated subspecialists. Independently verified all chairez historical elements and PE features. All questions answered. No further subjective issues; patient has reached maximum benefit from hospital stay. VS labs imaging reviewed NAD, AAO HR wnl, +s1/2 NT ND +BS Neuro baseline with no new FNDs or speech changes Agree with DC plan as indicated including discussion of diet, activity, and followups. <Pablo Harris - Last Filed: 09/20/19 07:03> Discharge Summary Problems reviewed: Yes Reason For Visit: ANEMIA,SYNCOPE,WEAKNESS Current Active Problems CKD (chronic kidney disease) (Acute) Diabetes (Acute) Syncope (Acute) - Home Medications Comprehensive Discharge Medication List: Ambulatory Orders Levothyroxine [Synthroid -] 75 mcg PO DAILY 07/12/15 Tamsulosin HCl [Flomax -] 0.4 mg PO DAILY #0 capsule 07/12/15 Albuterol Sulfate Inhaler - [Ventolin HFA Inhaler -] 2 inh PO Q4H PRN #1 inh 01/05 Famotidine [Pepcid -] 20 mg PO BID #14 tablet 02/02/16 Ferrous Sulfate [Feosol] 325 mg PO DAILY 30 Days #30 tablet 08/28/19 Metformin HCl [Glucophage] 500 mg PO BID 08/28/19 Pantoprazole Sodium 40 mg PO DAILY 08/28/19 Docusate Sodium [Colace] 100 mg PO DAILY PRN #30 capsule 08/31/19 Sennosides [Senna] 8.6 mg PO DAILY PRN #30 tablet 08/31/19 <Savanna Wells - Last Filed: 08/31/19 17:30> - Home Medications Comprehensive Discharge Medication List: Ambulatory Orders Levothyroxine [Synthroid -] 75 mcg PO DAILY 07/12/15 Tamsulosin HCl [Flomax -] 0.4 mg PO DAILY #0 capsule 07/12/15 Albuterol Sulfate Inhaler - [Ventolin HFA Inhaler -] 2 inh PO Q4H PRN #1 inh 01/05 Famotidine [Pepcid -] 20 mg PO BID #14 tablet 02/02/16 Ferrous Sulfate [Feosol] 325 mg PO DAILY 30 Days #30 tablet 08/28/19 Metformin HCl [Glucophage] 500 mg PO BID 08/28/19 Pantoprazole Sodium 40 mg PO DAILY 08/28/19 Docusate Sodium [Colace] 100 mg PO DAILY PRN #30 capsule 08/31/19 Sennosides [Senna] 8.6 mg PO DAILY PRN #30 tablet 08/31/19 <Pablo Harris - Last Filed: 09/20/19 07:03> Condition: Improved - Instructions Diet, Activity, Other Instructions: You were in the hospital because you almost passed out. While you were here, you received IV fluids for hydration. You also had testing done: your carotid doppler (imaging of your neck vessels) was normal. You also had a CT scan of your head, and ECHO which were normal. You improved and are being discharged home. Medications 1. You are being started on iron, since yours was low. Please take Ferrous Sulfate 325mg daily. 2. If you become constipated from the iron, you may take senna and colace daily (as needed). These will be prescribed. 3. You may continue your other home medications Testing You will need to have a colonoscopy scheduled through your primary care doctor. This is important, since you were found to have iron deficiency. Your primary care doctor will refer you to a GI (gastrointestinal) doctor to do this. Follow up Please follow with the following doctors on your discharge: -Dr. Dereck Corona, your primary care doctor - in 3-5 days after your discharge -Dr. Talley, a emergency services dispatcher - this week. to undergo holter monitoring -Dr. Barcenas, a culinary arts instructor (kidney doctor)- 1 week, to follow. since you have chronic kidney disease. Referrals: Gildardo Talley MD [Staff Physician] - 1 Week Radha Barcenas MD [Staff Physician] - 1 Week Damaris Corona MD [Primary Care Provider] - 09/02/19 Disposition: HOME This patient is new to me today: No Emergency Visit: No Critical Care patient: No - Discharge Referral Referred to [facility] No <Saavnna Wells - Last Filed: 08/31/19 17:30> ATTENDING PHYSICIAN STATEMENT I saw and evaluated the patient. I reviewed the resident's note and discussed the case with the resident. I agree with the resident's findings and plan as documented. SUBJECTIVE: OBJECTIVE: ASSESSMENT AND PLAN: <Pablo Harris - Last Filed: 09/20/19 07:03>
[2019-08-31] MEDS ORDERED: LISINOPRIL 5 MG TABLET (FP) PO ONE (16:42)
[2019-08-31 18:55] VITALS: BP 162/98; PULSE 88
== END 2019-08-31 19:44 | disposition home or self-care (01) | DRG 312 ==
LOC: JER 22:44 → JERBED 08-28 04:39 → INTOOBSV 08-28 04:39 → OBSVTOIN 08-28 06:37 → J4S 08-28 18:13
PROVIDERS: ADMIT Internal Medicine; ATTEND Internal Medicine
DX: R55 Syncope and collapse (principal); N17.9 Acute kidney failure, unspecified; A09 Infectious gastroenteritis and colitis, unspecified; E03.9 Hypothyroidism, unspecified; E11.9 Type 2 diabetes mellitus without complications; N40.0 Benign prostatic hyperplasia without lower urinary tract symptoms; K29.70 Gastritis, unspecified, without bleeding; D50.9 Iron deficiency anemia, unspecified; N18.9 Chronic kidney disease, unspecified; E86.0 Dehydration
CPT/HCPCS: 36415; 70450-TC; 71045-TC-FY; 72125-TC; 74176-TC; 80048; 80053; 81003; 82272; 82550; 82728; 82962; 83540; 83550; 83690; 83735; 84100; 84484; 85025; 85610; 85730; 87040; 87045; 87046; 87086; 87324; 87449; 93005; 93010; 93306-TC; 93880-TC; 99285-25; G0008; G0378; J1644; J7030; Q2036

== ENCOUNTER 2024-06-15 19:03 | Emergency (ER) | payer OTHER ==
[2024-06-15 19:13] VITALS: BMI 26.6
[2024-06-15] MEDS ORDERED: ACETAMINOPHEN INJECTION 100 ML ONE (20:49)
[2024-06-15] MEDS ORDERED: FAMOTIDINE 20 MG/50 ML IVPB 20 MG/50 ML MG IVPB ONE (20:49)
[2024-06-15] MEDS: SODIUM CHLORIDE 0.9% 500 ML INFUS.BAG IV ONE (20:59)
[2024-06-15] MEDS: FAMOTIDINE 20 MG/50 ML IVPB 20 MG/50 ML MG IVPB ONE (20:59)
[2024-06-15] MEDS: ACETAMINOPHEN 1000 MG/100 ML BAG IVPB ONE (20:59)
[2024-06-15 21:06] LABS: BASO % 0.7 % (0-2.0); EOS % 3.3 % (0-4.5); HEMATOCRIT 35.7 % (35.4-49); HEMOGLOBIN 11.6 GM/dL (11.7-16.9); LYMPH % 22.4 % (8-40); MCH 26.6 pg (25.7-33.7); MCHC 32.6 g/dl (32.0-35.9); MEAN CELL VOLUME 81.6 fl (80-96); MEAN PLT VOLUME 8.6 fl (7.5-11.1); MONO % 9.4 % (3.8-10.2); NEUT % 64.2 % (42.8-82.8); PLATELET COUNT 253 10^3/uL (134-434); RBC 4.37 M/mm3 (4.00-5.60); RDW 15.7 % (11.9-15.9); WHITE BLOOD COUNT 8.6 K/mm3 (4.0-10.0)
[2024-06-15] MEDS ORDERED: BACITRACIN 0.9 GM PACKET ONE (21:08)
[2024-06-15 21:35] LABS: POTASSIUM 4.1 mmol/L (3.5-5.1)
[2024-06-15 21:39] LABS: BLOOD UREA NITROGEN 16.1 mg/dL (7-18)
[2024-06-15 21:41] LABS: CREATININE 1.5 mg/dL (0.55-1.3)
[2024-06-15 21:43] LABS: BILIRUBIN,TOTAL 0.5 mg/dL (0.2-1); TOT PROT 8.6 g/dl (6.4-8.2)
[2024-06-15 23:48] VITALS: BP 94/55; PULSE 90; RESP 20; TEMP 98.2
[2024-06-15] MEDS: LACTATED RINGERS SOLUTION 1000 ML INFUS.BAG IV ONE (23:48)
[2024-06-16 00:34] LABS: POTASSIUM 3.8 mmol/L (3.5-5.1)
[2024-06-16 00:36] LABS: ALBUMIN 2.6 g/dl (3.4-5.0); BLOOD UREA NITROGEN 15.8 mg/dL (7-18); CALCIUM 8.4 mg/dL (8.5-10.1)
[2024-06-16 00:40] LABS: CREATININE 1.3 mg/dL (0.55-1.3)
[2024-06-16 00:41] LABS: BILIRUBIN,TOTAL 0.4 mg/dL (0.2-1); TOT PROT 7.3 g/dl (6.4-8.2)
[2024-06-16 01:08] LABS: HIV INTERPRETATION NEGATIVE (NEGATIVE)
[2024-06-16 01:18] LABS: PH,URINE 6.5 (5.0-8.0); URINE APPEARANCE CLEAR; URINE BILIRUBIN NEGATIVE (NEGATIVE); URINE COLOR YELLOW; URINE GLUCOSE (UA) NEGATIVE (NEGATIVE); URINE KETONE NEGATIVE (NEGATIVE); URINE LEUK ESTERASE NEGATIVE (NEGATIVE); URINE NITRITE NEGATIVE (NEGATIVE); URINE PROTEIN NEGATIVE (NEGATIVE); URINE UROBILINOGEN 0.2 mg/dL (0.2-1.0)
== END 2024-06-16 01:32 | disposition home or self-care (01) ==
LOC: JER 19:03
PROC: 3E033GC Introduction of Other Therapeutic Substance into Peripheral Vein, Percutaneous Approach (ICD-10-PCS; principal; 2024-06-15)
PROC: 3E033NZ Introduction of Analgesics, Hypnotics, Sedatives into Peripheral Vein, Percutaneous Approach (ICD-10-PCS; 2024-06-15)
DX: J10.1 Influenza due to other identified influenza virus with other respiratory manifestations (principal); R05.9 Cough, unspecified; R09.81 Nasal congestion; R50.9 Fever, unspecified; R10.11 Right upper quadrant pain; M79.10 Myalgia, unspecified site; R11.2 Nausea with vomiting, unspecified; Z20.822 Contact with and (suspected) exposure to COVID-19
CPT/HCPCS: 0241U-QW; 36415; 71046-TC-FY; 74176-TC; 80053; 81003; 83605; 83690; 84484; 85025; 86803; 87086; 87389; 93005; 93010; 96365; 96375; 99285-25; J0131

== ENCOUNTER 2024-09-17 14:22 | Inpatient (IN) | payer OTHER ==
[2024-09-17] MEDS: ALBUTEROL SO4 2.5/IPRATROPIUM 0.5 INH SOL 3 ML VIAL.NEB. NEB SCH (16:10)
[2024-09-17] MEDS ORDERED: ACETAMINOPHEN INJECTION 100 ML ONE (16:13)
[2024-09-17] MEDS ORDERED: ALBUTEROL SO4 2.5/IPRATROPIUM 0.5 INH SOL 3 ML VIAL.NEB. NEB ONE ×3 (16:13→16:32)
[2024-09-17 16:17] LABS: BASO % 0.7 % (0-2.0); EOS % 1.9 % (0-4.5); HEMATOCRIT 35.7 % (35.4-49); HEMOGLOBIN 11.3 GM/dL (11.7-16.9); LYMPH % 16.8 % (8-40); MCHC 31.6 g/dl (32.0-35.9); MEAN PLT VOLUME 8.4 fl (7.5-11.1); MONO % 7.6 % (3.8-10.2); PLATELET COUNT 339 10^3/uL (134-434); RBC 4.52 M/mm3 (4.00-5.60); RDW 16.7 % (11.9-15.9); WHITE BLOOD COUNT 15.1 K/mm3 (4.0-10.0)
[2024-09-17] MEDS: ACETAMINOPHEN 1000 MG/100 ML BAG IVPB ONE (16:21)
[2024-09-17 16:28] LABS: INR 1.07 (0.83-1.09); PROTHROMBIN TIME (PATIENT) 12.1 SEC (9.7-13.0)
[2024-09-17 16:30] LABS: ACTIVATED PTT 30.1 SECONDS (25.2-36.5)
[2024-09-17 16:34] LABS: POTASSIUM 5.2 mmol/L (3.5-5.1)
[2024-09-17 16:36] LABS: BLOOD UREA NITROGEN 12.7 mg/dL (7-18); CALCIUM 8.9 mg/dL (8.5-10.1)
[2024-09-17 16:37] LABS: ALBUMIN 3.1 g/dl (3.4-5.0)
[2024-09-17 16:40] LABS: CREATININE 1.3 mg/dL (0.55-1.3)
[2024-09-17 16:41] LABS: BILIRUBIN,TOTAL 0.7 mg/dL (0.2-1); TOT PROT 8.8 g/dl (6.4-8.2)
[2024-09-17] MEDS ORDERED: CEFTRIAXONE 1 G/50 ML PREMIX 50 ML IVPB ONE (18:45)
[2024-09-17] MEDS ORDERED: AZITHROMYCIN IVPB 500 MG/250 ML BAG IVPB ONE (18:46)
[2024-09-17] MEDS: SODIUM CHLORIDE 0.9% 500 ML INFUS.BAG IV ONE (19:00)
[2024-09-17] MEDS: AZITHROMYCIN IVPB 500 MG in DEXTROSE 5%-WATER - 250 ML IVPB ONE (19:01)
[2024-09-17 21:57] LABS: CHLORIDE 119 mmol/L (98-107); POTASSIUM 3.2 mmol/L (3.5-5.1); SODIUM 144 mmol/L (136-145)
[2024-09-17 21:59] LABS: ANION GAP 6 mmol/L (4-13); BLOOD UREA NITROGEN 9.4 mg/dL (7-18); CO2 19 mmol/L (21-32); GLUCOSE,RANDOM 88 mg/dL (74-106)
[2024-09-17 22:03] LABS: CREATININE 0.8 mg/dL (0.55-1.3)
[2024-09-17 22:05] LABS: CALCIUM 6.4 mg/dL (8.5-10.1)
[2024-09-17 23:11] LABS: ALBUMIN 2.1 g/dl (3.4-5.0)
[2024-09-17] MEDS: POTASSIUM CHLORIDE ORAL LIQUID 20 MEQ/15 ML PO ONE (23:20)
[2024-09-17] MEDS: guaiFENesin 200 MG/10 ML 10 ML UNIT-DOSE CUPS PO PRN (23:20)
[2024-09-17] MEDS: ACETAMINOPHEN W/ CODEINE LIQ 5 ML CUP PO ONE (23:25)
[2024-09-17] MEDS ORDERED: POTASSIUM CHLORIDE ORAL LIQUID 20 MEQ/15 ML ONE (23:27)
[2024-09-17] MEDS ORDERED: guaiFENesin 200 MG/10 ML 10 ML UNIT-DOSE CUPS ONE (23:27)
[2024-09-18] MEDS ORDERED: guaiFENesin 200 MG/10 ML 10 ML UNIT-DOSE CUPS ONE (05:34)
[2024-09-18 07:01] LABS: EOS % 1.3 % (0-4.5); HEMATOCRIT 35.4 % (35.4-49); HEMOGLOBIN 10.9 GM/dL (11.7-16.9); MCH 24.6 pg (25.7-33.7); MCHC 30.9 g/dl (32.0-35.9); MEAN CELL VOLUME 79.7 fl (80-96); MONO % 8.4 % (3.8-10.2); NEUT % 69.3 % (42.8-82.8); PLATELET COUNT 321 10^3/uL (134-434); RBC 4.44 M/mm3 (4.00-5.60); RDW 16.3 % (11.9-15.9); WHITE BLOOD COUNT 15.2 K/mm3 (4.0-10.0)
[2024-09-18 07:15] LABS: POTASSIUM 4.1 mmol/L (3.5-5.1)
[2024-09-18 07:21] LABS: BLOOD UREA NITROGEN 10.5 mg/dL (7-18)
[2024-09-18 07:25] LABS: CREATININE 1.1 mg/dL (0.55-1.3)
[2024-09-18 07:26] LABS: CALCIUM 8.7 mg/dL (8.5-10.1)
[2024-09-18] MEDS ORDERED: CEFTRIAXONE 1 G/50 ML PREMIX 50 ML IVPB ONE (09:22)
[2024-09-18] MEDS ORDERED: AZITHROMYCIN IVPB 0 MG/0 ML BAG IVPB ONE (09:22)
[2024-09-18] MEDS ORDERED: AZITHROMYCIN IVPB 500 MG/250 ML BAG IVPB ONE (09:35)
[2024-09-18] MEDS: CEFTRIAXONE 1 G/50 ML PREMIX 50 ML IVPB SCH (09:47)
[2024-09-18] MEDS: AZITHROMYCIN IVPB 500 MG in DEXTROSE 5%-WATER - 250 ML IVPB SCH (09:48)
[2024-09-18] MEDS ORDERED: ACETAMINOPHEN 325 MG TABLET (FP) ONE (14:13)
[2024-09-18] MEDS: ACETAMINOPHEN 325 MG TABLET (FP) PO PRN (14:16)
[2024-09-18] MEDS ORDERED: DOCUSATE SODIUM 100 MG CAPSULE (FP) PO PRN (16:47)
[2024-09-18] MEDS ORDERED: SENNOSIDES 8.6MG TABLET (FP) PO PRN (16:47)
[2024-09-18] MEDS ORDERED: ALBUTEROL SO4 2.5/IPRATROPIUM 0.5 INH SOL 3 ML VIAL.NEB. NEB PRN (16:48)
[2024-09-19] MEDS: amLODIPine BESYLATE 5 MG TABLET (FP) PO ONE (01:42)
[2024-09-19 02:09] VITALS: BMI 23.6
[2024-09-19 06:29] VITALS: RESP 18
[2024-09-19] MEDS: LEVOTHYROXINE NA 25 MCG TABLET (FP) PO SCH (06:41)
[2024-09-19] MEDS: metFORMIN HCL 500 MG TABLET (FP) PO SCH (06:41)
[2024-09-19] MEDS: amLODIPine BESYLATE 5 MG TABLET (FP) PO SCH (10:24)
[2024-09-19] MEDS: TAMSULOSIN HCL 0.4 MG CAP PO SCH (10:24)
[2024-09-19] MEDS: PANTOPRAZOLE 40 MG TABLET PO SCH (10:24)
[2024-09-19] MEDS: FERROUS SO4 325 MG TABLET (FP) PO SCH (10:24)
[2024-09-19 10:37] LABS: BASO % 0.5 % (0-2.0); EOS % 2.3 % (0-4.5); HEMOGLOBIN 10.9 GM/dL (11.7-16.9); LYMPH % 23.7 % (8-40); MCH 24.9 pg (25.7-33.7); MCHC 31.3 g/dl (32.0-35.9); MEAN CELL VOLUME 79.5 fl (80-96); MEAN PLT VOLUME 8.3 fl (7.5-11.1); MONO % 6.7 % (3.8-10.2); NEUT % 66.8 % (42.8-82.8); PLATELET COUNT 320 10^3/uL (134-434); RDW 16.4 % (11.9-15.9); WHITE BLOOD COUNT 11.1 K/mm3 (4.0-10.0)
[2024-09-19 11:02] LABS: BLOOD UREA NITROGEN 13.7 mg/dL (7-18); CALCIUM 8.8 mg/dL (8.5-10.1)
[2024-09-19] MEDS: AZITHROMYCIN IVPB 500 MG/250 ML BAG IVPB SCH (11:04)
[2024-09-19 11:06] LABS: CREATININE 1.2 mg/dL (0.55-1.3)
[2024-09-19 11:07] LABS: BILIRUBIN,TOTAL 0.6 mg/dL (0.2-1); TOT PROT 7.9 g/dl (6.4-8.2)
[2024-09-19 11:18] LABS: ALBUMIN 2.7 g/dl (3.4-5.0)
[2024-09-19] MEDS: methylPREDNISolone NA SUCC 40 MG/1 ML VIAL IVPUSH SCH (15:36)
[2024-09-20 10:12] LABS: BASO % 0.1 % (0-2.0); HEMOGLOBIN 10.6 GM/dL (11.7-16.9); LYMPH % 12.6 % (8-40); MCH 24.4 pg (25.7-33.7); MCHC 30.3 g/dl (32.0-35.9); MEAN CELL VOLUME 80.3 fl (80-96); MEAN PLT VOLUME 8.5 fl (7.5-11.1); MONO % 3.7 % (3.8-10.2); NEUT % 83.6 % (42.8-82.8); PLATELET COUNT 344 10^3/uL (134-434); RBC 4.36 M/mm3 (4.00-5.60); RDW 16.2 % (11.9-15.9); WHITE BLOOD COUNT 17.5 K/mm3 (4.0-10.0)
[2024-09-20 10:33] LABS: POTASSIUM 4.3 mmol/L (3.5-5.1)
[2024-09-20 10:36] LABS: ALBUMIN 2.7 g/dl (3.4-5.0); CALCIUM 8.8 mg/dL (8.5-10.1)
[2024-09-20 10:37] LABS: BLOOD UREA NITROGEN 22.6 mg/dL (7-18)
[2024-09-20 10:40] LABS: CREATININE 1.4 mg/dL (0.55-1.3)
[2024-09-20 10:41] LABS: BILIRUBIN,TOTAL 0.3 mg/dL (0.2-1); TOT PROT 7.8 g/dl (6.4-8.2)
[2024-09-21 09:12] LABS: BASO % 0.1 % (0-2.0); HEMOGLOBIN 10.7 GM/dL (11.7-16.9); LYMPH % 16.9 % (8-40); MCH 25.4 pg (25.7-33.7); MCHC 32.4 g/dl (32.0-35.9); MEAN CELL VOLUME 78.6 fl (80-96); MEAN PLT VOLUME 8.2 fl (7.5-11.1); PLATELET COUNT 347 10^3/uL (134-434); RDW 16.4 % (11.9-15.9); WHITE BLOOD COUNT 18.5 K/mm3 (4.0-10.0)
[2024-09-21 09:47] LABS: POTASSIUM 3.9 mmol/L (3.5-5.1)
[2024-09-21 09:57] LABS: ALBUMIN 2.6 g/dl (3.4-5.0); CALCIUM 8.7 mg/dL (8.5-10.1)
[2024-09-21 10:01] LABS: CREATININE 1.3 mg/dL (0.55-1.3)
[2024-09-21 10:02] LABS: BILIRUBIN,TOTAL 0.3 mg/dL (0.2-1); TOT PROT 7.7 g/dl (6.4-8.2)
[2024-09-21 10:11] LABS: BLOOD UREA NITROGEN 24.4 mg/dL (7-18)
[2024-09-22 09:09] LABS: BASO % 0.1 % (0-2.0); EOS % 0.1 % (0-4.5); HEMATOCRIT 35.3 % (35.4-49); HEMOGLOBIN 11.3 GM/dL (11.7-16.9); LYMPH % 26.1 % (8-40); MCH 25.1 pg (25.7-33.7); MEAN CELL VOLUME 78.5 fl (80-96); MEAN PLT VOLUME 8.2 fl (7.5-11.1); NEUT % 66.7 % (42.8-82.8); PLATELET COUNT 369 10^3/uL (134-434); RBC 4.49 M/mm3 (4.00-5.60); RDW 16.7 % (11.9-15.9); WHITE BLOOD COUNT 15.1 K/mm3 (4.0-10.0)
[2024-09-22 09:15] LABS: CALCIUM 8.8 mg/dL (8.5-10.1)
[2024-09-22 09:16] LABS: ALBUMIN 2.9 g/dl (3.4-5.0); BLOOD UREA NITROGEN 28.2 mg/dL (7-18)
[2024-09-22 09:19] LABS: CREATININE 1.2 mg/dL (0.55-1.3)
[2024-09-22 09:21] LABS: BILIRUBIN,TOTAL 0.3 mg/dL (0.2-1); TOT PROT 8.1 g/dl (6.4-8.2)
[2024-09-22] MEDS: methylPREDNISolone NA SUCC 40 MG/1 ML VIAL IVPUSH ONE (21:59)
[2024-09-22] MEDS: CEFTRIAXONE 1 G/50 ML PREMIX 50 ML IVPB ONE (21:59)
[2024-09-24 18:13] VITALS: BP 131/86; PULSE 74; TEMP 98.1
== END 2024-09-24 19:09 | disposition home or self-care (01) | DRG 195 ==
LOC: JER 14:22 → UNDOADMOB 18:17 → INTOOBSV 18:17 → OBSVTOIN 18:17 → JERBED 18:17 → OBSVTOIN 09-18 20:54 → JERBED 09-19 01:29 → J5S 09-19 01:29
PROVIDERS: ADMIT Internal Medicine; ATTEND Internal Medicine
DX: J18.9 Pneumonia, unspecified organism (principal); E11.9 Type 2 diabetes mellitus without complications; E03.9 Hypothyroidism, unspecified; N40.0 Benign prostatic hyperplasia without lower urinary tract symptoms; D72.829 Elevated white blood cell count, unspecified; J40 Bronchitis, not specified as acute or chronic
CPT/HCPCS: 0241U-QW; 36415; 71046-TC-FY; 71250-TC; 80048; 80053; 82040; 82962; 83036; 83605; 84443; 84484; 85025; 85610; 85730; 87040; 87899; 93005; 93010; 99285-25; J0131